=== PATIENT | male | born 1940 | race Caucasian/White ===

== ENCOUNTER 2023-07-14 12:42 | Day surgery (SDC) | payer MEDICARE, OTHER, SELFPAY ==
--- NOTE | 2023-07-14 | PATH_ITS ---
[facility] Accession Number: [id number] No. of containers..04 Tissue . 01 Material submitted: . PART A: colon - ASCENDING POLYP PART B: colon - RIGHT COLON PART C: colon - TRANSVERSE POLYPS PART D: colon - LEFT COLON . 01 Diagnosis: A. Ascending Colon Polyp: Tubular adenoma. . B. Right Colon: Colonic mucosa with no diagnostic abnormality. Negative for active, chronic, and microscopic colitis. Negative for dysplasia and malignancy. . C. Transverse Polyps: Portions of tubular adenoma x2. . D. Left Colon: Colonic mucosa with no diagnostic abnormality. Negative for active, chronic, and microscopic colitis. Negative for dysplasia and malignancy. [facility] 07/18/2023 1121 Local . 01 Electronically signed: . Clari Barrera MD, Pathologist NPI- [id number] . 01 Gross description: . Part A: ASCENDING POLYP: Received in formalin is 1 fragment(s) of key, soft tissue measuring 0.2 x 0.2 x 0.2 cm submitted entirely in 1 cassette(s) Part B: RIGHT COLON: Received in formalin are 2 fragment(s) of key, soft tissue measuring 0.1 x 0.1 x 0.1 cm to 0.2 x 0.2 x 0.2 cm submitted entirely in 1 cassette(s) Part C: TRANSVERSE POLYPS : Received in formalin are 2 fragment(s) of key, soft tissue measuring 0.1 x 0.1 x 0.1 cm to 0.3 x 0.2 x 0.2 cm submitted entirely in 1 cassette(s) Part D: LEFT COLON: Received in formalin are 2 fragment(s) of key, soft tissue measuring 0.2 x 0.2 x 0.2 cm to 0.3 x 0.2 x 0.2 cm submitted entirely in 1 cassette(s) /NIVIA 07/15/2023 2318 Local . 01 Pathologist provided ICD-10: R15.2, K63.5, R10.30, R14.0, R19.7, Z86.010 . 01 CPT . 216547, 799037, 159156, 800004 Specimen Comment: A courtesy copy of this report has been sent to [phone] Performed at: 01 [facility] [address] [place] [address] [id number] MD Marvin Polanco MD Phone: [phone]
[2023-07-14 12:59] VITALS: BMI 31.1
[2023-07-14 13:06] VITALS: BP 168/88; PULSE 74; RESP 16; TEMP 36.1; O2SAT 99
[2023-07-14] MEDS: LACTATED RINGERS 1,000 ML 42 ML IV (13:14)
--- NOTE | 2023-07-14 13:25 | P.HP_ITS ---
History of Present Illness History of Present Illness Date Patient Seen: 07/14/23 Time Patient Seen: 13:25 Chief complaint: Dx Colonoscopy w/poss bx Narrative: 82-year-old male here for chronic diarrhea, bloating, abdominal pain in the lower region, fecal urgency, and fecal incontinence. There has been a slight but not sustained improvement with the addition of fiber. Colonoscopy is therefore pursued today. His last exam was 2020 at [facility] where some small t ubular adenomas were removed and a 3 year recall was made. Siddhartha Cleaning's recent office note from June 10 is reviewed for today. [facility] Social History household members: spouse Smoking Status: Former smoker Meds Home Medications and Allergies Home Medications Medication Instructions Recorded Confirmed Type losartan 25 mg tablet (Cozaar) 50 mg PO DAILY ##0 08/27/17 07/14/23 History metformin 1,000 mg tablet 1,000 mg PO BID 07/14/23 07/14/23 History simvastatin 40 mg tablet 40 mg PO DAILY 07/14/23 07/14/23 History Allergies Allergy/AdvReac Type Severity Reaction Status Date / Time No Known Drug Allergies Allergy Verified 07/14/23 12:57 Review of Systems Review of Systems ROS: Yes All systems reviewed with the patient and are negative except as otherwise documented Exam Vital Signs (past 8 hours): - 07/14/23 13:06 Temperature 96.9 F L Pulse Rate 74 Respiratory Rate 16 Blood Pressure 168/88 H Pulse Oximetry 99 Oxygen Delivery Method Room Air Oxygen Delivery Method Room Air Const General: cooperative HENMT Head: normal to inspection Eyes General: appearance normal, both eyes and all related structures Neck Neck: normal visual inspection Chest Chest: normal inspection of the chest Resp Effort & Inspection: normal respiratory effort Cardio Rate: regular rate GI Inspection: normal to inspection Skin General: no rashes or lesions noted Neuro General: patient alert and patient awake Extrem General: normal to inspection and no pedal edema Psych Appearance: grossly normal Assessment & Plan Assessment & Plan narrative: 82-year-old male with diarrhea, abdominal pain, bloating, fecal urgency, fecal incontinence. There is a personal history of colon polyps. Updated colonoscopy is pursued today.
--- NOTE | 2023-07-14 13:28 | PM.PREOP ---
Pre-operative Note Interval Note History & Physical reviewed/Exam performed by Physician: Yes Changes to H&P: No ASA Class (for procedural sedation): II
--- NOTE | 2023-07-14 14:02 | PM.OP.COLON ---
Operative Date/Time/Diagnoses Date of procedure: 07/14/23 Time of procedure: 14:02 Pre-op diagnosis: Abdominal pain, diarrhea, bloating, fecal incontinence, fecal urgency, and a personal history of colon polyps. Post-op diagnosis: same Procedure & Clinicians Study performed: Colonoscopy with cold snare polypectomy and cold forceps polypectomy plus random colon biopsies. Same procedure as scheduled: Yes Indications: Abdominal pain, diarrhea, bloating, fecal incontinence, fecal urgency, and a personal history of colon polyps. Surgeon: Calderon Palumbo Procedure Notes SCOAP/Timeout: Done Procedure in detail: After the risks and benefits were explained, written and verbal informed consent was obtained. The patient was brought into the procedure room and placed into the left lateral decubitus position. Please see anesthesia notes for sedation details. Digital rectal examination was accomplished. The scope was introduced into the patient and advanced under direct visualization to the cecum as identified by the appendiceal orifice and ileocecal valve. The scope was slowly withdrawn to carefully examine the mucosa for any defects or lesions. Comprehensive imaging was accomplished throughout the rectum including the dentate line. The colon was decompressed, the scope was then removed from the patient who tolerated the procedure well. Adult colonoscope Bowel prep adequate Scope withdrawal time: 17 minutes Sedation minutes: 24 Complications: none Impression: The patient had moderate diverticulosis all throughout the left colon. I did not see any evidence of macroscopic colitis throughout. Random colon biopsies were taken from both the right and left colon and submitted for histopathologic analysis. The terminal ileum appeared visually normal. There was a diminutive polyp in the ascending colon removed with cold forceps. There were 2 small polyps (maximum dimension 5 mm) removed with cold snare in the transverse colon. The patient had grade 1 to grade 2 internal nonbleeding nonthrombosed hemorrhoids. Endoscopic diagnosis 1. Multiple small colon polyps 2. Diverticulosis 3. Mild internal hemorrhoids Post-procedure Plan for aftercare: 1. Await histopathology. 2. If adenomatous features are confirmed, repeat colonoscopy can be considered for 3 years' time. 3. For now, titrate [id number] supplemental fiber to the desired stool consistency and frequency. Disposition: PACU
[2023-07-14 14:08] VITALS: BP 122/70; PULSE 69; RESP 16; TEMP 36.6; O2SAT 95
[2023-07-14 14:12] VITALS: BP 127/77; PULSE 68; RESP 18; O2SAT 95
[2023-07-14 14:17] VITALS: BP 132/76; PULSE 72; RESP 16; O2SAT 95
== END 2023-07-14 14:30 | disposition home or self-care (01) ==
PROVIDERS: PCP Family Medicine; Referring Provider Internal Medicine Gastroenterology; Visit Provider Internal Medicine Gastroenterology
PROC: 0DJD8ZZ Inspection of Lower Intestinal Tract, Via Natural or Artificial Opening Endoscopic (ICD-10-PCS; CPT 45378; principal; 2023-07-14 14:00)
DX: R10.30 Lower abdominal pain, unspecified (principal); R15.2 Fecal urgency; R14.0 Abdominal distension (gaseous); R19.7 Diarrhea, unspecified; Z86.010 Personal history of colon polyps; K57.30 Diverticulosis of large intestine without perforation or abscess without bleeding; K64.1 Second degree hemorrhoids; D12.2 Benign neoplasm of ascending colon; D12.3 Benign neoplasm of transverse colon
CPT/HCPCS: 45385; 45380; J2704